=== PATIENT | female | born 1950 | race African-American/Black ===

== ENCOUNTER 2017-09-08 11:34 | Outpatient (CLI) | payer MEDICARE ==
--- NOTE | 2017-09-08 13:59 | RAD ---
TWO VIEWS CERVICAL SPINE: INDICATIONS: Unspecified shoulder and back pain. COMPARISON: None. FINDINGS: There is moderate multilevel disk degenerative disease and facet osteoarthritic change. There is str aightening of the normal cervical lordosis. The prevertebral soft tissues are normal appearing. The lung apices are clear. IMPRESSION: Moderate cervical spondylosis without evidence of acute fracture. POS: [facility]
--- NOTE | 2017-09-08 14:00 | RAD ---
THREE VIEWS RIGHT SHOULDER: INDICATIONS: Unspecified right shoulder pain and back pain. COMPARISON: None. FINDINGS: No acute fracture or subluxation is evident. There is mild glenohumeral with moderate AC joint osteo arthrosis present. There are degenerative changes involving the greater tuberosity. The visualized right lung is clear. IMPRESSION: 1. No acute osseous abnormality. 2. 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 POS: [facility]
== END 2017-09-08 11:35 | disposition home or self-care (01) ==
LOC: RAD 11:34
PROVIDERS: ATTEND Family Medicine
DX: M25.511 Pain in right shoulder (principal); M54.9 Dorsalgia, unspecified; M19.011 Primary osteoarthritis, right shoulder; M47.892 Other spondylosis, cervical region
CPT/HCPCS: 72040

== ENCOUNTER 2019-01-30 12:32 | Emergency (ER) | payer MEDICARE ==
[2019-01-30 13:03] LABS: #Eosinphils 0.2 thou/uL (0.0-0.7); #Lymphocytes 2.8 thou/uL (1.20-3.40); #Monocytes 0.4 thou/uL (0.11-0.59); #Neutrophils 2.5 thou/uL (1.40-6.50); %Basophils 0.2 % (0.0-1.0); %Eosinophils 3.3 % (0.0-10.0); %Monocytes 7.1 % (0.0-10.0); %Neutrophils 42.4 % (42.0-75.0); Hemoglobin 13.4 g/dL (12.0-16.0); Mean Corpuscular HGB CONC 33.3 g/dL (32.0-36.0); Mean Corpuscular Hemoglobin 27.5 pg (27.0-31.0); Mean Corpuscular Volume 82.6 fL (78.0-98.0); Mean Platelet Volume 6.7 fL (7.4-10.4); Platelet Count 297 thou/uL (130-400); RBC Distribution Width 12.2 % (11.5-14.5); Red Blood Cell (RBC) Count 4.86 mill/uL (4.20-5.40); White Blood Cell (WBC) Count 5.9 thou/uL (4.8-10.8)
[2019-01-30 13:25] LABS: ALT (SGPT) 8 U/L (8-55); AST (SGOT) 22 U/L (5-34); Albumin 4.3 g/dL (3.4-4.8); Alkaline Phosphatase 95 U/L (40-150); Anion Gap 13 mmol/L (10-20); BUN (Urea Nitrogen) 14 mg/dL (9.8-20.1); Bilirubin, Total 0.4 mg/dL (0.2-1.2); CK (CPK) 259 U/L (29-168); Calc. Creatinine Clearance 0 mL/min (70-130); Calcium 9.8 mg/dL (7.8-10.44); Carbon Dioxide 30 mmol/L (23-31); Chloride 98 mmol/L (98-107); Estimated GFR-MDRD 71; Globulin 2.9 g/dL (2.4-3.5); Glucose 250 mg/dL (80-115); Potassium 4.5 mmol/L (3.5-5.1); Protein, Total 7.2 g/dL (6.0-8.3); Sodium 136 mmol/L (136-145)
== END 2019-01-30 13:39 | disposition home or self-care (01) ==
LOC: ERS 12:32
DX: E11.649 Type 2 diabetes mellitus with hypoglycemia without coma (principal); E78.5 Hyperlipidemia, unspecified; E78.00 Pure hypercholesterolemia, unspecified; I10 Essential (primary) hypertension; Z79.84 Long term (current) use of oral hypoglycemic drugs; Z79.899 Other long term (current) drug therapy
CPT/HCPCS: 36415; 36416; 80053; 82550; 84484; 85025; 93005